=== PATIENT | male | born 1955 | race Caucasian/White ===

== ENCOUNTER 2017-03-13 05:49 | Day surgery (SDC) | payer OTHER ==
[~2017-03-13] VITALS: Ht 182.9 cm; Wt 106.6 kg
[~2017-03-13 05:49] MED LIST: ADVAIR DISK1; ASPIRIN81 MG PO; CARTIA XT180 MG PO; CLOPIDOGREL75 MG PO; FUROSEMIDE40 MG PO; LOSARTAN POT50 MG PO; NIACIN SR500 M1 PO; OMEGA 31000 MG PO; PHOSLO667 M1 PO; RENVELA800 MG PO; ROCALTROL0.5 MC1 PO; SIMVASTATIN20 MG PO; SODIUM BICARBI650 MG PO; TRIPHROCAPS PO; VENTOLIN HFA IN
[2017-03-13 08:38] VITALS: BP 136/45
== END 2017-03-13 08:55 | disposition home or self-care (01) | DRG 951 ==
LOC: ENDO 05:49
PROVIDERS: ATTEND Internal Medicine Gastroenterology
PROC: 0DBN8ZX Excision of Sigmoid Colon, Via Natural or Artificial Opening Endoscopic, Diagnostic (ICD-10-PCS; principal; 2017-03-13)
DX: Z12.11 Encounter for screening for malignant neoplasm of colon (principal); E11.22 Type 2 diabetes mellitus with diabetic chronic kidney disease; C19 Malignant neoplasm of rectosigmoid junction; I12.9 Hypertensive chronic kidney disease with stage 1 through stage 4 chronic kidney disease, or unspecified chronic kidney disease; N18.9 Chronic kidney disease, unspecified; E78.00 Pure hypercholesterolemia, unspecified; K64.4 Residual hemorrhoidal skin tags; K64.8 Other hemorrhoids; Z98.84 Bariatric surgery status; Z95.1 Presence of aortocoronary bypass graft